=== PATIENT | female | born 1980 | race Caucasian/White ===

== ENCOUNTER 2025-04-11 13:26 | Emergency (ER) | payer OTHER ==
[~2025-04-11] VITALS: Ht 162.6 cm; Wt 54.7 kg
[2025-04-11 13:31] VITALS: BP 110/71; TEMP 97.9; O2SAT 97
[2025-04-11] MEDS: CLINDAMYCIN 150 MG CAPSULE PO ONE (18:10)
[2025-04-11] MEDS ORDERED: CLEO300C2 PO (18:11)
== END 2025-04-11 18:26 | disposition home or self-care (01) ==
LOC: M ED 13:26
DX: L03.115 Cellulitis of right lower limb (principal); L03.116 Cellulitis of left lower limb; I10 Essential (primary) hypertension; Z91.018 Allergy to other foods; Z91.013 Allergy to seafood; Z79.2 Long term (current) use of antibiotics